=== PATIENT | male | born 1980 | race Caucasian/White ===

== ENCOUNTER 2017-03-10 23:22 | Emergency (ER) | payer MEDICAID, OTHER ==
[2017-03-11 00:04] VITALS: BMI 28.0
[2017-03-11 00:06] VITALS: BP 129/75
--- NOTE | 2017-03-11 00:09 | ED PDOC ---
Arrival/HPI - General Time Seen by Provider: 03/11/17 00:04 Historian: Patient - History of Present Illness Narrative History of Present Illness (Text): 03/11/17 00:05 36yo male with no PMhx present with right 4th finger pain s/p trauma last night. states he slipped and fell with his right 4th finger flexed. states he came to ED for the persistent pain and swelling. He took Ibuprofen yesterday with some relieve. Denies any other complaint. Past Medical History - Provider Review Nursing Documentation Reviewed: Yes - Past History Past History: No Previous - Infectious Disease Hx of Infectious Diseases: None - Psychiatric Hx Psychophysiologic Disorder: No Hx Substance Use: No Family/Social History - Physician Review Nursing Documentation Reviewed: Yes Family/Social History: Unknown Family HX Smoking Status: Current Some Days Smoker Hx Alcohol Use: No Hx Substance Use: No Allergies/Home Meds Allergies/Adverse Reactions: Allergies No Known Allergies Allergy (Verified 03/11/17 00:06) Review of Systems - Physician Review All systems were reviewed & negative as marked: Yes - Review of Systems Constitutional: Normal Eyes: Normal ENT: Normal Respiratory: Normal Cardiovascular: Normal Gastrointestinal: Normal Genitourinary Male: Normal Musculoskeletal: Arthralgias (right 4th finger) Skin: Normal Neurological: Normal Endocrine: Normal Hemo/Lymphatic: Normal Psychiatric: Normal Physical Exam Vital Signs Reviewed: Yes Vital Signs Temp Pulse Resp BP Pulse Ox 03/11/17 00:52 98.0 F 80 19 99 03/11/17 00:03 98.2 F 85 18 129/75 100 Temperature: Afebrile Blood Pressure: Normal Pulse: Regular Respiratory Rate: Normal Appearance: Positive for: Well-Appearing, Non-Toxic, Comfortable Pain Distress: None Mental Status: Positive for: Alert and Oriented X 3 - Systems Exam Head: Present: Atraumatic, Normocephalic Pupils: Present: PERRL Extroacular Muscles: Present: EOMI Conjunctiva: Present: Normal Mouth: Present: Moist Mucous Membranes Neck: Present: Normal Range of Motion Respiratory/Chest: Present: Clear to Auscultation, Good Air Exchange. No: Respiratory Distress, Accessory Muscle Use Cardiovascular: Present: Regular Rate and Rhythm, Normal S1, S2. No: Murmurs Abdomen: Present: Normal Bowel Sounds. No: Tenderness, Distention, Peritoneal Signs Back: Present: Normal Inspection Upper Extremity: Present: Normal ROM (With pain on flexion), NORMAL PULSES, Tenderness (Right 4th finger), Swelling (Right 4th PIP joint), Neurovascularly Intact. No: Cyanosis, Edema, Erythema (Ecchymosis noted over the right 4th finger), Deformity Lower Extremity: Present: Normal Inspection. No: Edema Neurological: Present: GCS=15, CN II-XII Intact, Speech Normal Skin: Present: Warm, Dry, Normal Color. No: Rashes Psychiatric: Present: Alert, Oriented x 3, Normal Insight, Normal Concentration Medical Decision Making ED Course and Treatment: 03/11/17 01:18 Right hand xray - No acute fracture of 4th digit noted finger splint placed. Result was DW the pt. DC with ibuprofen 600mg - RAD Interpretation Radiology Orders: 03/11/17 00:05 HAND RIGHT 4TH DIGIT (FINGER) [RAD] Stat - Medication Orders Current Medication Orders: Discontinued Medications Ibuprofen (Motrin Tab) 600 mg PO STAT STA Stop: 03/11/17 00:05 Last Admin: 03/11/17 00:16 Dose: 600 mg MAR Pain/Vitals Document 03/11/17 00:16 MARINA (Rec: 03/11/17 00:16 [place] [facility] [id number] Pain Reassessment Is This A Pain ReAssessment? Yes Sleep Is patient sleeping during reassessment? No Presence of Pain Presence of Pain Yes Location Pain Location Body Site Finger Disposition/Present on Arrival - Present on Arrival Any Indicators Present on Arrival: No History of DVT/PE: No History of Uncontrolled Diabetes: No Urinary Catheter: No History Surgical Site Infection Following: None - Disposition Have Diagnosis and Disposition been Completed?: Yes Diagnosis: Finger sprain Disposition: HOME/ ROUTINE Disposition Time: :20 Patient Plan: Discharge Condition: STABLE Discharge Instructions (ExitCare): Finger Sprain (ED) Additional Instructions: Follow up with your doctor/orthopedist Return to ED for any new symptoms Prescriptions: Ibuprofen [Motrin Tab] 600 mg PO Q6 #20 tab Referrals: Gene Bourne MD [Staff Provider] - Follow up with primary
[2017-03-11 00:52] VITALS: PULSE 80; RESP 19; TEMP 98; O2SAT 99
--- NOTE | 2017-03-11 09:24 | RAD ---
PROCEDURE: Right ring finger radiographs. HISTORY: finger pain s/p trauma COMPARISON: None. TECHNIQUE: AP radiograph of the right hand, as well as spot oblique and lateral images of ring finger were obtained. FINDINGS: RIGHT RING FINGER: There is no acute displaced fracture in the ring finger. Bone alignment and mineralization are normal. Remainder of the right hand (as seen on the AP view) grossly unremarkable. JOINTS: Normal. SOFT TISSUES: Normal. OTHER FINDINGS: None. IMPRESSION: No acute fracture or dislocation.
== END 2017-03-11 01:31 | disposition home or self-care (01) ==
LOC: ED 23:22
DX: S63.614A Unspecified sprain of right ring finger, initial encounter (principal); W01.0XXA Fall on same level from slipping, tripping and stumbling without subsequent striking against object, initial encounter